=== PATIENT | female | born 1960 ===

== ENCOUNTER 2021-01-12 11:42 | Inpatient (IN) ==
[~2021-01-12 11:42] MED LIST: Buffered Lidocaine 1% SYRIN 1 ml INTRADERM ONE; DiMENhydriNATE IV 50 mg/ml 1 ml VIAL IV PUSH PRN; Lactated Ringers 1000 ml BAG 1,000 ML IV SCH; Naloxone 0.4 mg VIAL 0.4 mg/ml 1 ml VIAL IV PRN; Ondansetron 4 mg VIAL 2 MG/ML 2 ml VIAL IV PRN; fentaNYL 100 mcg/2 ml 50 MCG/ML VIAL IV PRN; oxyCODONE/Acetamin 5/325 mg TAB PO PRN
[2021-01-12] MEDS ORDERED: fentaNYL 100 mcg/2 ml 50 MCG/ML VIAL ONE ×2 (11:43→17:02)
[2021-01-12] MEDS ORDERED: Midazolam 2 mg/2 ml VIAL 1 mg/ml 2 ml VIAL (2 mg) ONE (11:44)
[2021-01-12] MEDS ORDERED: Propofol 10 MG/ML 20 ML BTL ONE ×2 (11:59→15:11)
[2021-01-12] MEDS ORDERED: Dexmedetomidine 200 mcg/2 ml 2 ml VIAL (200 mcg) ONE (11:59)
[2021-01-12] MEDS ORDERED: ceFAZolin 2 GM PREMIX 2 GM/50 ML BAG ONE (12:14)
[2021-01-12] MEDS ORDERED: Ondansetron 4 mg VIAL 2 MG/ML 2 ml VIAL ONE (14:55)
[2021-01-12] MEDS ORDERED: EPHEDrine (Pressors) 50 MG/ML VIAL ONE (14:55)
[2021-01-12] MEDS ORDERED: hydrALAZINE 20 mg/ml 1 ML Vial IV ONE (16:30)
[2021-01-12] MEDS ORDERED: Lactulose 30 ml UDC PO PRN (16:45)
[2021-01-12] MEDS ORDERED: Magnesium Hydroxide LIQ 30 ML UDC PO PRN (16:45)
[2021-01-12] MEDS ORDERED: diPHENhydraMINE 25 mg TAB PO PRN (16:45)
[2021-01-12] MEDS ORDERED: Morphine 2 MG/ML SYRINGE IV PRN (16:45)
[2021-01-12] MEDS ORDERED: Ondansetron ODT 4 mg TAB 4 MG TAB PO PRN (16:45)
[2021-01-12] MEDS ORDERED: Ondansetron 4 mg VIAL 2 MG/ML 2 ml VIAL IV PRN (16:45)
[2021-01-12] MEDS ORDERED: diPHENhydraMINE IV 50 MG/ML 1 ml VIAL (BENADRYL) IV PRN (16:45)
[2021-01-12] MEDS ORDERED: Simvastatin 20 mg TAB (NF) PO SCH (18:00)
[2021-01-12] MEDS: Lactated Ringers 1000 ml BAG 1,000 ML IV SCH (18:45)
[2021-01-12] MEDS ORDERED: CMCS: Simvastatin 10 mg TAB (NF) PO SCH (21:00)
[2021-01-12] MEDS: Magnesium Hydroxide LIQ 30 ML UDC PO SCH (22:03)
[2021-01-12] MEDS: ceFAZolin 1 GM ADVAN 1 GM in NS 0.9% 50 ML 50 ML IVPB SCH (22:24)
[2021-01-13] MEDS: Lactated Ringers 1000 ml BAG 1,000 ML IV SCH (04:32)
[2021-01-13 04:57] LABS: Hematocrit 33 % (35-47); Hemoglobin 11.6 g/dL (12.0-16.0); Mean Platelet Volume 7.6 fL (7.4-10.4); Platelet Count 295 10^3/uL (150-450)
[2021-01-13 05:14] LABS: BUN/Creatinine Ratio 17.6 (8-20); Calcium 8.5 mg/dL (8.6-10.3); EGFR Non-African American 67.8 (>60); Potassium 3.7 mmol/L (3.5-5.0)
[2021-01-13] MEDS: ceFAZolin 1 GM ADVAN 1 GM in NS 0.9% 50 ML 50 ML IVPB SCH ×2 (05:55→13:36)
[2021-01-13] MEDS ORDERED: Vitamin THERAPEUTIC TAB PO SCH (09:00)
[2021-01-13] MEDS: Magnesium Hydroxide LIQ 30 ML UDC PO SCH (09:49)
[2021-01-13 11:05] VITALS: BP 119/62
== END 2021-01-13 14:20 | disposition home health service (06) | DRG 301 ==
LOC: AA 11:42 → SSU 18:09
PROVIDERS: ADMIT Orthopaedic Surgery Adult Reconstructive Orthopaedic Surgery; ATTEND Orthopaedic Surgery Adult Reconstructive Orthopaedic Surgery